=== PATIENT | female | born 1985 | race American Indian/Alaskan Native ===

== ENCOUNTER 2017-01-24 08:29 | Emergency (ER) | payer SELFPAY ==
[2017-01-24 08:37] VITALS: BP 112/62
[2017-01-24 09:07] LABS: Basophils % (Auto) 1.3 % (0.0-1.8); Eosinophils % (Auto) 1.7 % (0.0-4.3); Hematocrit 39.3 % (30.3-42.9); Hemoglobin 12.3 gm/dl (10.1-14.3); Mean Corpuscular HGB Conc 31 % (30-34); Mean Corpuscular Volume 81 fl (79-97); Platelet Count 422 K/mm3 (140-440); Red Blood Count 4.88 M/mm3 (3.65-5.03); Red Cell Distribution Width 14.8 % (13.2-15.2); White Blood Count 5.5 K/mm3 (4.5-11.0)
[2017-01-24 09:11] LABS: Bilirubin,Urine NEG (Negative); Blood,Urine SM (Negative); Ketones,Urine NEG (Negative); Leukocyte Esterase,Urine NEG (Negative); Mucus,Urine 1+ /HPF; Nitrite,Urine NEG (Negative); Protein,Urine <15 mg/dL mg/dL (Negative); Urobilinogen,Urine < 2.0 mg/dL (<2.0)
[2017-01-24 09:11] LABS: Mean Corpuscular Hemoglobin 25 pg (28-32)
[2017-01-24 09:41] LABS: Alanine Aminotransferase 8 units/L (7-56); Albumin 4.8 g/dL (3.9-5); Albumin/Globulin Ratio 1.6 %; Alkaline Phosphatase 57 units/L (35-129); Anion Gap 18 mmol/L; Calcium 9.4 mg/dL (8.4-10.2); Carbon Dioxide 23 mmol/L (22-30); Chloride 102.5 mmol/L (98-107); Glucose 87 mg/dL (65-100); Lipase 39 units/L (13-60); Potassium 4.6 mmol/L (3.6-5.0); Sodium 139 mmol/L (137-145); Total Protein 7.8 g/dL (6.3-8.2)
[2017-01-24 09:45] LABS: BUN/Creatinine Ratio 16.66; Blood Urea Nitrogen 10 mg/dL (7-17)
== END 2017-01-24 19:12 | disposition left against medical advice (07) ==
LOC: ED 08:29
DX: R10.30 Lower abdominal pain, unspecified (principal); R11.0 Nausea; F12.10 Cannabis abuse, uncomplicated
CPT/HCPCS: 36415; 80053; 81001; 83690; 84703; 85025; 87210; 87591; 99283

== ENCOUNTER 2018-07-31 05:00 | Emergency (ER) | payer MEDICAID, OTHER ==
[2018-07-31] MEDS ORDERED: ULTRAM PO ONE (05:23)
[2018-07-31] MEDS ORDERED: TRIMOX PO ONE (05:23)
--- NOTE | 2018-07-31 05:24 | Emergency Department Report ---
ED ENT HPI - General Chief complaint: Dental/Oral Stated complaint: TOOTHACHE LEFT SIDE OF FACE PAIN Time Seen by Provider: 07/31/18 05:22 Source: patient Mode of arrival: Ambulatory Limitations: No Limitations - History of Present Illness Initial comments: Patient 3-year-old female who presents with dental pain is acute on chronic exacerbation the past 3 years pain leve 5/ 10 aching there is no facial or jaw swelling there is no ear or throat pain patient was tolerating by mouth intake Pain is exacerbated by hot and cold pain is relieved by hydrocodone complaint: tooth pain Onset/Timin -: week(s) Location: tooth # (18) Severity: moderate Severity scale (0 -10): 5 Quality: aching Consistency: constant Improves with: NSAID Worsens with: eating, other (hot cold stimuli) Context- Dental: history of dental caries, poor dental care Associated Symptoms: toothache - Related Data Previous Rx's Medication Instructions Recorded Last Taken Type Amoxicillin 500 mg PO TID 10 Days #30 capsule 07/31/18 Unknown Rx Chlorhexidine Mouthwash [Peridex] 15 ml MM BID #1 bottle 07/31/18 Unknown Rx Tramadol HCl [Ultram] 50 mg PO Q6HR PRN #12 tablet 07/31/18 Unknown Rx Allergies Allergy/AdvReac Type Severity Reaction Status Date / Time povidone-iodine Allergy Unknown Verified 01/24/17 08:38 [From Betadine] soap [From Betadine] Allergy Unknown Verified 01/24/17 08:38 ED Dental HPI - General Chief complaint: Dental/Oral Stated complaint: TOOTHACHE LEFT SIDE OF FACE PAIN Time Seen by Provider: 07/31/18 05:22 Source: patient Mode of arrival: Ambulatory Limitations: No Limitations - Related Data Previous Rx's Medication Instructions Recorded Last Taken Type Amoxicillin 500 mg PO TID 10 Days #30 capsule 07/31/18 Unknown Rx Chlorhexidine Mouthwash [Peridex] 15 ml MM BID #1 bottle 07/31/18 Unknown Rx Tramadol HCl [Ultram] 50 mg PO Q6HR PRN #12 tablet 07/31/18 Unknown Rx Allergies Allergy/AdvReac Type Severity Reaction Status Date / Time povidone-iodine Allergy Unknown Verified 01/24/17 08:38 [From Betadine] soap [From Betadine] Allergy Unknown Verified 09/08/17 08:38 ED Review of Systems ROS: Stated complaint: TOOTHACHE LEFT SIDE OF FACE PAIN Other details as noted in HPI Constitutional: denies: chills, fever Eyes: denies: eye pain, eye discharge, vision change ENT: dental pain Respiratory: denies: cough, shortness of breath, wheezing Cardiovascular: denies: chest pain, palpitations Endocrine: no symptoms reported Gastrointestinal: denies: abdominal pain, nausea, diarrhea Genitourinary: denies: urgency, dysuria, discharge Musculoskeletal: denies: back pain, joint swelling, arthralgia Skin: as per HPI Neurological: as per HPI Psychiatric: denies: anxiety, depression Hematological/Lymphatic: denies: easy bleeding, easy bruising ED Past Medical Hx - Past Medical History Previous Medical History?: Yes Additional medical history: scarlet fever - Surgical History Past Surgical History?: No - Social History Smoking Status: Former Smoker Substance Use Type: None - Medications Home Medications: Home Medications Medication Instructions Recorded Confirmed Last Taken Type Amoxicillin 500 mg PO TID 10 Days #30 capsule 07/31/18 Unknown Rx Chlorhexidine Mouthwash [Peridex] 15 ml MM BID #1 bottle 07/31/18 Unknown Rx Tramadol HCl [Ultram] 50 mg PO Q6HR PRN #12 tablet 07/31/18 Unknown Rx ED Physical Exam - General Limitations: No Limitations General appearance: alert, in no apparent distress - Head Head exam: Present: atraumatic, normocephalic - Eye Eye exam: Present: normal appearance, PERRL, EOMI Pupils: Present: normal accommodation - ENT ENT exam: Present: normal orophraynx, mucous membranes moist, TM's normal bilaterally, normal external ear exam - Expanded ENT Exam Expanded Teeth exam: Present: dental caries (18), fractured tooth #, dental tenderness # Throat exam: Positive: normal inspection, other (uvula midline no exudate no lesions no stridor ) - Neck Neck exam: Present: normal inspection, full ROM. Absent: tenderness, meningismus, lymphadenopathy, thyromegaly - Respiratory Respiratory exam: Present: normal lung sounds bilaterally, chest wall tenderness. Absent: respiratory distress, wheezes, stridor - Cardiovascular Cardiovascular Exam: Present: regular rate, normal rhythm, normal heart sounds. Absent: systolic murmur, diastolic murmur, rubs, gallop - GI/Abdominal GI/Abdominal exam: Present: soft, normal bowel sounds - Rectal Rectal exam: Present: deferred - Extremities Exam Extremities exam: Present: normal inspection, full ROM, normal capillary refill. Absent: tenderness, pedal edema, joint swelling, calf tenderness - Back Exam Back exam: Present: normal inspection, full ROM, rash noted. Absent: tenderness, CVA tenderness (R), CVA tenderness (L), muscle spasm, paraspinal tenderness, vertebral tenderness - Neurological Exam Neurological exam: Present: alert, oriented X3, CN II-XII intact, normal gait - Psychiatric Psychiatric exam: Present: normal affect, normal mood - Skin Skin exam: Present: warm, dry, intact, normal color. Absent: rash ED Medical Decision Making - Medical Decision Making this infected infected dental caries no facial or gum swelling no stridor no throat pain plan treat with amoxicillin. Peridex ultrasound patient will follow us outside [facility] dental services today patient verbalizes agreement and understanding of discharge plan patient will be DC'd home in stable condition at this time Critical care attestation.: If time is entered above; I have spent that time in minutes in the direct care of this critically ill patient, excluding procedure time. ED Disposition Clinical Impression: Infected dental caries Disposition: DC-01 TO HOME OR SELFCARE Is pt being admited?: No Does the pt Need Aspirin: No Condition: Stable Instructions: Dental Caries (ED) Prescriptions: Amoxicillin 500 mg PO TID 10 Days #30 capsule Chlorhexidine Mouthwash [Peridex] 15 ml MM BID #1 bottle Tramadol HCl [Ultram] 50 mg PO Q6HR PRN #12 tablet PRN Reason: pain Referrals: [facility] [Outside] - 3-5 Days Forms: Work/School Release Form(ED) Time of Disposition: 05:41
[2018-07-31 05:46] VITALS: BP 116/79
== END 2018-07-31 05:52 | disposition home or self-care (01) ==
LOC: ED 05:00
DX: K02.9 Dental caries, unspecified (principal); Z87.891 Personal history of nicotine dependence; Z91.041 Radiographic dye allergy status; Z91.048 Other nonmedicinal substance allergy status
CPT/HCPCS: 99282